=== PATIENT | female | born 1970 | race Caucasian/White ===

== ENCOUNTER 2020-07-14 02:05 | Emergency (ER) | payer OTHER ==
[~2020-07-14] VITALS: Ht 175.3 cm; Wt 90.7 kg
[2020-07-14 02:20] VITALS: BP 179/98
[2020-07-14] MEDS ORDERED: ONDANSETRON 4 MG ODT PO ONE (02:45)
[2020-07-14] MEDS ORDERED: ACETAMINOPHEN EXTRA STRENGTH 500 MG TAB PO ONE (02:45)
[2020-07-14 05:50] VITALS: BP 164/87
== END 2020-07-14 05:50 | disposition home or self-care (01) ==
LOC: MED 02:05
DX: M79.10 Myalgia, unspecified site (principal); R05 Cough; R50.9 Fever, unspecified; R19.7 Diarrhea, unspecified; J45.909 Unspecified asthma, uncomplicated; I51.9 Heart disease, unspecified; E11.9 Type 2 diabetes mellitus without complications; Z88.1 Allergy status to other antibiotic agents; Z20.828 Contact with and (suspected) exposure to other viral communicable diseases
CPT/HCPCS: 99283; Q0162; U0003